=== PATIENT | male | born 1980 | race African-American/Black ===

== ENCOUNTER 2017-02-20 22:00 | Inpatient (IN) | payer SELFPAY ==
[~2017-02-20] VITALS: Ht 185.4 cm; Wt 203.9 kg
[2017-02-20] MEDS ORDERED: FUROSEMIDE 40MG/4ML VIAL IV STA (22:47)
[2017-02-20] MEDS ORDERED: ASPIRIN 81MG TABLET PO STA (22:47)
[2017-02-20 23:15] LABS: EOSINOPHILS % 3.2 % (0.0-5.0); HEMOGLOBIN. 13.6 g/dL (14.0-18.0); LYMPHOCYTES % 22.1 % (20.0-50.0); MEAN CORPUSCULAR HGB CONC 33.2 g/dL (31.0-37.0); MEAN CORPUSCULAR VOLUME 84.4 fL (80.0-94.0); MEAN PLATELET VOLUME 8.8 fl (7.4-10.4); MONOCYTES % 9.7 % (2.0-8.0); PLATELET 240 x1000/uL (130-400); RED BLOOD CELL COUNT 4.86 mill/uL (4.7-6.1); RED CELL DISTRIBUTION WIDTH 17.2 % (11.6-14.6); WHITE BLOOD COUNT 12.6 x1000/uL (4.5-11.0)
[2017-02-20] MEDS: NITROGLYCERIN 0.4MG TABLET SL SL PRN ×2 (23:20→23:25)
[2017-02-20 23:21] LABS: CHLORIDE 105 mEq/L (98-107); INDEX HEMOLYSI 1 (1-3); INDEX ICTERIC 1 (1-4); INDEX LIPEMIC 1 (1-3)
[2017-02-20 23:23] LABS: INR 1.3; PARTIAL THROMBOPLASTIN TIME 25.2 sec (24.0-34.0); PROTHROMBIN TIME 13.2 sec
[2017-02-20 23:32] LABS: ALANINE AMINOTRANSFERASE 62 IU/L (13-61); ALBUMIN 3.1 g/dL (3.4-5.0); ANION GAP 13; CALCIUM 8.4 mg/dL (8.5-10.1); CARBON DIOXIDE 28 mEq/L (21-32); LIPASE 101 IU/L (73-393); NT PRO B-TYPE NATRIURETIC PEP 4329 pg/mL (5-125); TROPONIN I 0.04 ng/mL (0.00-0.04); UREA NITROGEN BLOOD 15 mg/dL (7-21); eGFR > 60 mL/min (>60)
[2017-02-21] MEDS ORDERED: ACETAMINOPHEN 650MG/20.3ML UDC GT PRN (00:15)
[2017-02-21] MEDS ORDERED: LORAZEPAM 2MG/ML CPJ IV PRN (00:15)
[2017-02-21] MEDS ORDERED: DIPHENHYDRAMINE 50MG/ML VIAL IV PRN (00:15)
[2017-02-21 02:33] VITALS: BP 123/89
[2017-02-21] MEDS ORDERED: FURO40TA5 PO (02:59)
[2017-02-21] MEDS ORDERED: LISI-186 PO (02:59)
[2017-02-21] MEDS ORDERED: CARV3.1242 PO (02:59)
[2017-02-21 04:00] VITALS: BP 127/91
[2017-02-21 04:39] LABS: CLARITY URINE CLEAR (CLEAR); COLOR URINE YELLOW (YELLOW); GLUCOSE URINE NEGATIVE (NEGATIVE); KETONES URINE NEGATIVE (NEGATIVE); LEUKOCYTE ESTERASE URINE NEGATIVE (NEGATIVE); NITRITE URINE NEGATIVE (NEGATIVE); OCCULT BLOOD URINE NEGATIVE (NEGATIVE); PROTEIN URINE NEGATIVE (NEGATIVE); SPECIFIC GRAVITY URINE 1.008 (1.005-1.030); UROBILINOGEN URINE 0.2 E.U./dL (0.2-1.0)
[2017-02-21 04:56] LABS: *AMPHETAMINES SCREEN URINE NEGATIVE (NEGATIVE); *BARBITURATES SCREEN URINE NEGATIVE (NEGATIVE); *BENZODIAZEPINES SCREEN URINE NEGATIVE (NEGATIVE); *COCAINE SCREEN URINE NEGATIVE (NEGATIVE); CANNABINOID URINE SCREEN NEGATIVE (NEGATIVE); ECSTASY MDMA SCREEN URINE NEGATIVE (NEGATIVE); METHADONE URINE SCREEN NEGATIVE (NEGATIVE); OPIATES URINE SCREEN NEGATIVE (NEGATIVE); PHENCYCLIDINE URINE SCREEN NEGATIVE (NEGATIVE)
[2017-02-21] MEDS: ENOXAPARIN 40MG/0.4ML SYR SUBCUT SCH ×2 (05:29→17:11)
[2017-02-21] MEDS: CLONIDINE 0.1MG TABLET PO PRN ×2 (07:55→21:41)
[2017-02-21 08:00] VITALS: BP 132/101
[2017-02-21] MEDS: FUROSEMIDE 40MG/4ML VIAL IVP SCH (09:29)
[2017-02-21 10:45] LABS: BASOPHILS % 0.8 % (0.0-2.0); EOSINOPHILS % 2.4 % (0.0-5.0); HEMOGLOBIN. 13.6 g/dL (14.0-18.0); LYMPHOCYTES % 18.7 % (20.0-50.0); MEAN CORPUSCULAR HEMOGLOBIN 27.6 pg (28.0-32.0); MEAN CORPUSCULAR HGB CONC 32.5 g/dL (31.0-37.0); MEAN CORPUSCULAR VOLUME 84.8 fL (80.0-94.0); MEAN PLATELET VOLUME 9.5 fl (7.4-10.4); MONOCYTES % 9.2 % (2.0-8.0); NEUTROPHILS % 68.9 % (40.0-76.0); PLATELET 239 x1000/uL (130-400); RED BLOOD CELL COUNT 4.95 mill/uL (4.7-6.1); RED CELL DISTRIBUTION WIDTH 16.9 % (11.6-14.6); WHITE BLOOD COUNT 12.6 x1000/uL (4.5-11.0)
[2017-02-21 11:04] LABS: ANION GAP 17; CALCIUM 8.5 mg/dL (8.5-10.1); CARBON DIOXIDE 25 mEq/L (21-32); CHLORIDE 105 mEq/L (98-107); INDEX HEMOLYSI 1 (1-3); INDEX ICTERIC 2 (1-4); INDEX LIPEMIC 1 (1-3); MAGNESIUM 1.7 mg/dL (1.8-2.4); UREA NITROGEN BLOOD 14 mg/dL (7-21); eGFR > 60 mL/min (>60)
[2017-02-21 12:00] VITALS: BP_SYST 122; BP_SYST 132; BP_DIAS 101; BP_DIAS 86
[2017-02-21] MEDS: POTASSIUM CHLORIDE 10MEQ TABLET SR PO SCH (12:04)
[2017-02-21 16:00] VITALS: BP 105/78
[2017-02-21 20:00] VITALS: BP 179/119
[2017-02-22] VITALS: BP 127/95
[2017-02-22 04:00] VITALS: BP 126/77
[2017-02-22] MEDS: ENOXAPARIN 40MG/0.4ML SYR SUBCUT SCH ×2 (05:20→16:23)
[2017-02-22 07:22] LABS: ANION GAP 13; CALCIUM 8.7 mg/dL (8.5-10.1); CARBON DIOXIDE 28 mEq/L (21-32); CHLORIDE 104 mEq/L (98-107); INDEX HEMOLYSI 1 (1-3); INDEX ICTERIC 2 (1-4); INDEX LIPEMIC 1 (1-3); UREA NITROGEN BLOOD 15 mg/dL (7-21); eGFR > 60 mL/min (>60)
[2017-02-22 07:32] LABS: BASOPHILS % 0.6 % (0.0-2.0); EOSINOPHILS % 2.9 % (0.0-5.0); HEMATOCRIT. 43.1 % (42.0-52.0); LYMPHOCYTES % 23.6 % (20.0-50.0); MEAN CORPUSCULAR HEMOGLOBIN 27.9 pg (28.0-32.0); MEAN CORPUSCULAR HGB CONC 32.6 g/dL (31.0-37.0); MEAN CORPUSCULAR VOLUME 85.5 fL (80.0-94.0); MEAN PLATELET VOLUME 9.2 fl (7.4-10.4); MONOCYTES % 11.4 % (2.0-8.0); NEUTROPHILS % 61.5 % (40.0-76.0); PLATELET 240 x1000/uL (130-400); RED BLOOD CELL COUNT 5.04 mill/uL (4.7-6.1); RED CELL DISTRIBUTION WIDTH 16.6 % (11.6-14.6); WHITE BLOOD COUNT 11.5 x1000/uL (4.5-11.0)
[2017-02-22 08:00] VITALS: BP 132/96
[2017-02-22] MEDS: POTASSIUM CHLORIDE 10MEQ TABLET SR PO SCH (08:10)
[2017-02-22] MEDS: LISINOPRIL 5MG TABLET PO SCH (08:10)
[2017-02-22] MEDS: FUROSEMIDE 40MG/4ML VIAL IVP SCH ×2 (08:10→16:23)
[2017-02-22] MEDS ORDERED: CARVEDILOL 3.125 MG TABLET PO SCH (09:00)
[2017-02-22] MEDS: ASPIRIN 81MG EC TABLET PO SCH (09:57)
[2017-02-22] MEDS: MAGNESIUM OXIDE 400MG TABLET PO SCH ×2 (09:57→16:23)
[2017-02-22 12:00] VITALS: BP 125/90
[2017-02-22 16:00] VITALS: BP 115/92
[2017-02-22] MEDS ORDERED: AMOXICILLIN/POTASSIUM CLAVULANATE 875/125MG TAB PO SCH (18:00)
[2017-02-22 20:00] VITALS: BP 118/82
[2017-02-22] MEDS: CARVEDILOL 3.125 MG TABLET PO SCH (21:35)
[2017-02-23] VITALS: BP 121/79
[2017-02-23 04:00] VITALS: BP 142/90
[2017-02-23] MEDS: ENOXAPARIN 40MG/0.4ML SYR SUBCUT SCH ×2 (06:18→19:14)
[2017-02-23 07:09] LABS: CHLORIDE 103 mEq/L (98-107); INDEX HEMOLYSI 1 (1-3); INDEX ICTERIC 1 (1-4); INDEX LIPEMIC 1 (1-3)
[2017-02-23 07:10] LABS: BASOPHILS % 0.7 % (0.0-2.0); EOSINOPHILS % 3.3 % (0.0-5.0); HEMATOCRIT. 42.3 % (42.0-52.0); HEMOGLOBIN. 13.9 g/dL (14.0-18.0); LYMPHOCYTES % 24.2 % (20.0-50.0); MEAN CORPUSCULAR HGB CONC 32.9 g/dL (31.0-37.0); MEAN CORPUSCULAR VOLUME 85.2 fL (80.0-94.0); MEAN PLATELET VOLUME 9.1 fl (7.4-10.4); MONOCYTES % 12.5 % (2.0-8.0); NEUTROPHILS % 59.3 % (40.0-76.0); PLATELET 256 x1000/uL (130-400); RED BLOOD CELL COUNT 4.97 mill/uL (4.7-6.1); RED CELL DISTRIBUTION WIDTH 16.8 % (11.6-14.6); WHITE BLOOD COUNT 10.7 x1000/uL (4.5-11.0)
[2017-02-23 07:27] LABS: ANION GAP 13; CALCIUM 8.5 mg/dL (8.5-10.1); CARBON DIOXIDE 27 mEq/L (21-32); MAGNESIUM 2.1 mg/dL (1.8-2.4); TROPONIN I < 0.02 ng/mL (0.00-0.04); UREA NITROGEN BLOOD 15 mg/dL (7-21); eGFR > 60 mL/min (>60)
[2017-02-23 08:00] VITALS: BP 133/85
[2017-02-23] MEDS: ASPIRIN 81MG EC TABLET PO SCH (09:06)
[2017-02-23] MEDS: MAGNESIUM OXIDE 400MG TABLET PO SCH ×2 (09:06→19:07)
[2017-02-23] MEDS: FUROSEMIDE 40MG/4ML VIAL IVP SCH (09:06)
[2017-02-23] MEDS: POTASSIUM CHLORIDE 10MEQ TABLET SR PO SCH (09:06)
[2017-02-23] MEDS: CARVEDILOL 3.125 MG TABLET PO SCH (09:07)
[2017-02-23] MEDS: LISINOPRIL 5MG TABLET PO SCH (09:07)
[2017-02-23 12:00] VITALS: BP 126/67
[2017-02-23 16:00] VITALS: BP 113/72
[2017-02-23] MEDS ORDERED: FUROSEMIDE 40MG TABLET PO SCH (21:00)
[2017-02-23 21:28] VITALS: BP 133/89
== END 2017-02-23 22:10 | disposition home or self-care (01) | DRG 194 ==
LOC: ER 22:01 → SUPCPDRO 02-21 00:02 → 5WST 02-21 00:06
PROVIDERS: ADMIT Internal Medicine Nephrology; ATTEND Internal Medicine Nephrology
DX: I11.0 Hypertensive heart disease with heart failure (principal); I47.2 Ventricular tachycardia; Z68.43 Body mass index [BMI] 50.0-59.9, adult; E83.42 Hypomagnesemia; I42.9 Cardiomyopathy, unspecified; E66.01 Morbid (severe) obesity due to excess calories; E78.00 Pure hypercholesterolemia, unspecified; J45.909 Unspecified asthma, uncomplicated; E87.6 Hypokalemia; G47.33 Obstructive sleep apnea (adult) (pediatric); I50.23 Acute on chronic systolic (congestive) heart failure
CPT/HCPCS: 36415; 71010; 80048; 80053; 80305; 81003; 82553; 83690; 83735; 83880; 84443; 84484; 85025; 85610; 85730; 93005; 93306; 96374; 99285; J1650; J1940